=== PATIENT | female | born 1945 | race Caucasian/White ===

== ENCOUNTER 2017-01-16 16:03 | Outpatient (CLI) | payer OTHER ==
--- NOTE | 2017-01-16 18:18 | RAD ---
LEFT SHOULDER THREE VIEWS: Date: 01-16-17 FINDINGS: No fracture, dislocation, or AC joint widening was seen. There is some degenerative change in the AC joint. No periarticular calcifications are seen. IMPRESSION: Minor degenerative changes in the AC joint. POS: HOME
== END 2017-01-16 16:04 | disposition home or self-care (01) ==
LOC: BURRAD 16:03
PROVIDERS: ATTEND Family Medicine
DX: M25.512 Pain in left shoulder (principal); M19.012 Primary osteoarthritis, left shoulder

== ENCOUNTER 2019-05-07 11:59 | Outpatient (CLI) | payer OTHER ==
--- NOTE | 2019-05-07 19:30 | ULT ---
PELVIC ULTRASOUND: 05/07/19 Ultrasonography of the pelvis was performed for evaluation of suprapubic pain. The urinary bladder is well distended. There are no internal findings of concern. There has been a prior hysterectomy. No a dnexal masses were seen. No abnormal fluid collections were present. IMPRESSION: No acute pelvic findings to explain the patient's pain. POS: HOME
== END 2019-05-07 12:00 | disposition home or self-care (01) ==
LOC: BURULT 11:59
PROVIDERS: ATTEND Family Medicine
DX: R10.2 Pelvic and perineal pain (principal)
CPT/HCPCS: 76856